=== PATIENT | female | born 1985 | race Two or more races ===

== ENCOUNTER 2017-01-08 08:53 | Emergency (ER) | payer BC ==
[~2017-01-08] VITALS: Ht 162.6 cm; Wt 73.9 kg
[2017-01-08 11:09] VITALS: BP 122/82
== END 2017-01-08 13:49 | disposition home or self-care (01) ==
LOC: ER 08:56
DX: O20.0 Threatened abortion (principal); Z3A.01 Less than 8 weeks gestation of pregnancy
CPT/HCPCS: 36415; 76801; 76817; 81002; 84702